=== PATIENT | female | born 2000 | race Caucasian/White ===

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

== ENCOUNTER 2019-12-22 20:29 | Emergency (ER) | payer MEDICAID, OTHER ==
[2019-12-22] MEDS ORDERED: LORAZEPAM 0.5 MG TABLET ONE (22:04)
== END 2019-12-22 22:33 | disposition home or self-care (01) ==
LOC: EDH 20:29
DX: F41.9 Anxiety disorder, unspecified (principal); R00.2 Palpitations; F32.9 Major depressive disorder, single episode, unspecified
CPT/HCPCS: 81025; 93005

== ENCOUNTER 2019-12-25 17:39 | Emergency (ER) | payer OTHER ==
[2019-12-25 18:08] LABS: BASOPHILS % (AUTO) 0.2 % (0.0-5.0); EOSINOPHILS % (AUTO) 0.5 % (0.0-8.0); HEMATOCRIT 41.3 % (36-48); MEAN CORPUSCULAR HEMOGLOBIN 30.9 pg (27.0-33.0); MEAN CORPUSCULAR HGB CONC 33.4 g/dL (32.0-36.0); MEAN CORPUSCULAR VOLUME 92.4 fL (80-100); NEUTROPHILS % (AUTO) 76.1 % (40.0-77.0); PLATELET COUNT (AUTO) 236 K/uL (130-400); RED BLOOD CELL COUNT(AUTO) 4.47 MIL/uL (4.00-5.50); RED CELL DISTRIBUTION WIDTH 11.9 % (11.0-15.5); WHITE BLOOD COUNT (AUTO) 10.2 K/uL (4.8-10.8)
[2019-12-25 18:19] LABS: CREATININE 0.7 mg/dL (0.5-1.5)
[2019-12-25 18:52] LABS: APPEARANCE,URINE Clear (CLEAR); BILIRUBIN,URINE Negative (NEGATIVE); COLOR,URINE Yellow (YELLOW); GLUCOSE, URINE (UA) Negative (NEGATIVE); KETONES,URINE Negative (NEGATIVE); LEUKOCYTE ESTERASE ,URINE Negative (NEGATIVE); NITRATE,URINE Negative (NEGATIVE); OCCULT BLOOD,URINE Negative (NEGATIVE); PROTEIN,URINE Negative (NEGATIVE); UROBILINOGEN,URINE 0.2 mg/dL (0.2-1.0)
[2019-12-25 18:55] LABS: HCG,QUAL RESULT NEGATIVE (NEGATIVE)
[2019-12-25 18:59] LABS: AMPHET/METH SCREEN,URINE NEGATIVE (NEGATIVE); BARBITURATE SCREEN, URINE NEGATIVE (NEGATIVE); BENZODIAZEPINES SCREEN,URINE NEGATIVE (NEGATIVE); CANNABINOID SCREEN,URINE NEGATIVE (NEGATIVE); COCAINE SCREEN,URINE NEGATIVE (NEGATIVE); OPIATE SCREEN,URINE NEGATIVE (NEGATIVE); PHENCYCLIDINE SCREEN,URINE NEGATIVE (NEGATIVE)
== END 2019-12-25 19:22 | disposition home or self-care (01) ==
LOC: EDH 17:39
DX: F41.9 Anxiety disorder, unspecified (principal); R00.2 Palpitations; F32.9 Major depressive disorder, single episode, unspecified; Z79.899 Other long term (current) drug therapy
CPT/HCPCS: 36415; 80048; 80305; 81003; 81025; 84443; 84484; 85025; 93005